=== PATIENT | male | born 1950 | race Caucasian/White ===

== ENCOUNTER 2016-09-05 16:39 | Emergency (ER) | payer OTHER ==
--- NOTE | 2016-09-05 17:24 | EDPHY ---
H & P Stated Complaint: friday lifted large weight injured back Time Seen by Provider: 09/05/16 17:18 HPI/ROS: CHIEF COMPLAINT: low back pain HISTORY OF PRESENT ILLNESS: 66-year-old male presents to the emergency department with his complaining of low back pain times 5 days. Patient was lifting a heavy object from the ground when he felt a pop in his low back and has had pain in his back since. Patient states he has been lying in bed for the last 5 days alternating ice and heat and taking ibuprofen intermittently. He denies saddle anesthesias, no loss of control of his bowel or bladder, no fevers. Patient states his pain intermittently radiates down his right leg to his ankle. Pain is worse with movement, sharp and achy in nature. Patient states he takes 400 mg of ibuprofen at a time which helps his symptoms mildly. Patient states he has a known spondylolisthesis from a trampoline accident when he was 18 years old that intermittently causes him problems that last for just a couple days. This is worse than previous cases. REVIEW OF SYSTEMS: A comprehensive 10 point review of systems is otherwise negative aside from elements mentioned in the history of present illness. Source: Patient, Family Exam Limitations: No limitations - Personal History Current Tetanus/Diphtheria Vaccine: Yes - Medical/Surgical History Hx Asthma: No Hx Chronic Respiratory Disease: No Hx Diabetes: No Hx Cardiac Disease: Yes Hx Renal Disease: No Hx Cirrhosis: No Hx Alcoholism: No Hx HIV/AIDS: No Hx Splenectomy or Spleen Trauma: No Other PMH: ablation for a fib - Social History Smoking Status: Never smoked - Physical Exam Exam: Physical Exam Gen: Alert and Oriented, NAD HEENT: PERRL, moist mucous membranes NECK: no meningismus CV: regular rate and regular rhythm PULM: CTAB, no wheezes ABDOMEN: soft, non tender to palpation, BS present BACK: Midline L5 tenderness to palpation, bilateral SI joint tenderness to palpation NEURO: Neurologically grossly intact, 2/4 deep tendon reflexes patellar and Achilles, negative straight leg raise bilaterally, 5/5 strength bilateral lower extremities EXTREMITIES: normal appearing SKIN: no rash or break in skin on exposed skin PSYCH: answers questions appropriately. Constitutional: Initial Vital Signs Temperature (C) 36.4 C 09/05/16 16:48 Heart Rate 72 09/05/16 16:48 Respiratory Rate 18 02/02/17 16:48 Blood Pressure 136/83 H 09/05/16 16:48 O2 Sat (%) 94 09/05/16 16:48 O2 Delivery Mode Room Air Allergies/Adverse Reactions: No Known Allergies Allergy (Verified 09/05/16 16:48) Home Medications: Medication Instructions Recorded Hydrocodone/APAP 5/325 [[place] 1 tab PO Q4H PRN #20 tab 09/05/16 5/325] Methocarbamol [Robaxin-750] 750 mg PO QID PRN #20 tablet 09/05/16 TESTOSTERONE 09/05/16 Medical Decision Making ED Course/Re-evaluation: 66-year-old male presents with low back pain x5 days after lifting a heavy box. Patient has no signs of cauda equina syndrome or spinal abscess. There is no need for imaging emergently in the emergency department. Patient is sent home with a prescription for Robaxin and [place]. He is going to follow up with a physical therapist tomorrow. Patient has been given strict return precautions for signs and symptoms of spinal abscess or cauda equina syndrome. Patient is comfortable with this plan. Differential Diagnosis: The differential diagnosis for the patient's back pain included but was not limited to musculo-skeletal pain, epidural abscess, herniated disk, spinal fracture, cauda equina and intra-abdominal causes including urinary system. Departure - Departure Disposition: Home, Routine, Self-Care Clinical Impression: Lumbar radiculitis Condition: Good Instructions: Lumbar Radiculopathy (ED), Lower Back Exercises (ED) Additional Instructions: Take 600 mg of ibuprofen every 8 hours with food for 5 days, takes Robaxin every 8 hours as needed for muscle spasms. Take [place] for severe pain Ice or heat whichever feels better, gentle range of motion exercises, core strengthening exercises daily. Follow up with physical therapy as soon as possible. Return to the emergency department for any loss of control of your bowel or bladder, numbness to your groin, fevers. I have referred you to a neurosurgeon for symptoms that are not improving. Referrals: Jesse Grande MD [Medical Doctor] - As per Instructions (Neurosurgeon on-call) Prescriptions: Hydrocodone/APAP 5/325 [[place] 5/325] 1 tab PO Q4H PRN #20 tab PRN Reason: Pain, Moderate Methocarbamol [Robaxin-750] 750 mg PO QID PRN #20 tablet PRN Reason: Spasms
[2016-09-05] MEDS ORDERED: METHOCARBAMOL 750 MG TAB PO ONE (17:52)
[2016-09-05] MEDS ORDERED: HYDROCODONE/APAP 5/325 TAB PO ONE (17:52)
[2016-09-05 18:29] VITALS: BP 136/91; PULSE 76; RESP 20; TEMP 98.1; O2SAT 93
== END 2016-09-05 18:29 | disposition home or self-care (01) ==
DX: M54.16 Radiculopathy, lumbar region (principal); X58.XXXA Exposure to other specified factors, initial encounter; Y93.89 Activity, other specified

== ENCOUNTER 2018-10-07 14:29 | Inpatient (IN) | payer OTHER ==
[2018-10-07] MEDS ORDERED: IPRATROPIUM/ALBUTEROL 3 ML DEYVIAL ONE (14:54)
[2018-10-07] MEDS ORDERED: IPRATROPIUM/ALBUTEROL 3 ML DEYVIAL IH ONE (15:34)
[2018-10-07] MEDS ORDERED: BENZONATATE 100 MG CAP PO ONE (15:36)
[2018-10-07 15:43] LABS: PLATELET COUNT 238 10^3/uL (150-400)
--- NOTE | 2018-10-07 15:48 | EDPHY ---
H & P Time Seen by Provider: 10/07/18 15:07 HPI/ROS: HPI Cough, headache. 68-year-old immunocompetent male by private vehicle with his . This patient reports he has had a dry nonproductive hacking cough for the last week. This cough started after your returned from [place] on a trip with his . His tells me that lots of people had a respiratory like illness in [place]. He was seen at the [facility] yesterday. He was prescribed Tussin which she says has helped his cough. He also was put on a Z-Venkatesh. He is on day 2. Of azithromycin. He reports intermittent chills. He denies fever. He states that he has a very intense headache when he is having a coughing fit. He describes this is aching, pulsating and frontal. He also describes having mild muscle aches and joint aches. He was checked for flu yesterday at the urgent care and this was negative. ROS: Constitutional: As above. No weakness. Eyes: No discharge. No changes in vision. ENT: No sore throat. No nasal congestion or rhinorrhea. Respiratory: As above. Shortness of breath associated with the cough.. Cardiac: No chest pain, no palpitations. Gastrointestinal: No abdominal pain, no vomiting, no diarrhea. Genitourinary: No hematuria. No dysuria or increased frequency with urination. Musculoskeletal: No back pain. No neck pain. As above. Skin: No rashes. Neurological: As above. No focal weakness or altered sensation. Past medical history: Ablation for AFib x2. He is not on any anticoagulant or antiplatelet medications. Social history: Nonsmoker. No alcohol. Here with his . As above. Physical Exam: General Appearance: Alert, intermittent hacking coughing fits. This patient is responding to questions appropriately and in full sentences. This patient appears well-hydrated and well-nourished. Eyes: Pupils equal and round no pallor or injection. No lid edema, erythema or injection. Respiratory: There are no retractions, lung sounds are mildly diminished bilaterally, no wheezing. Intermittent hacking coughing fits. No tachypnea. Cardiovascular: Regular rate and rhythm. No murmur appreciated. Neurological: Motor sensory function is grossly intact. Cranial nerves are normal. Gait is normal. Skin: Warm and dry, no rashes. Musculoskeletal: Neck is supple and nontender. Extremities are symmetrical. All joints range without pain or impingement. Psychiatric: No agitation. No depression. Database: EKG: Imaging: Chest x-ray PA and lateral: The cardiac mediastinal silhouette is unremarkable. No evidence of pneumothorax. Left lower lobe infiltrate. Findings suggestive of bronchitis. No other acute cardiopulmonary disease process. Interpreted by me. CT head without contrast: Negative. Results were discussed with staff radiologist Dr. Guillermo Rodrigues. Procedures: Emergency department course: Triage vital signs reviewed. He is moderately hypertensive. Vital signs are otherwise normal. He is afebrile. He was initially given an albuterol nebulizer from triage. He stated this helped his cough. After my evaluation he will be given an albuterol/Atrovent nebulizer and Tessalon parole. Chest x- ray to be obtained as well as respiratory pathogen panel. CT head without contrast will be obtained as well to evaluate for sinus disease as well as pathology related to his headache. Patient endorses workup. The patient has not been immunized for influenza. He is unsure about his immunization history. Of concern is possible pertussis. However he is currently on azithromycin. He states that he is on day 2 of azithromycin. He had this medication left over from sometime ago and started taking it 2 days ago. 4:35 p.m., patient re-evaluated, more comfortable at this time. Cough is improved. Results of chest x-ray discussed, diagnosis of pneumonia discussed. Blood cultures obtained. Need for admission discussed with the patient and his . They endorse. I spoke with the hospitalist in the emergency department regarding this patient. Dr. Duran accepts this patient for admission to the hospitalist service. I discussed antibiotic administration. The patient will receive IV Rocephin and IV azithromycin in the emergency department. The patient's remaining emergency department course under my care has been uneventful. The patient was admitted in stable condition to the hospitalist service. Differential Diagnosis: The differential diagnosis on this patient includes but is not limited to viral bronchitis, influenza. This represents a partial list of diagnoses considered. These considerations are based on history, physical exam, past history, reassessment and diagnostic testing. Smoking Status: Never smoked Constitutional: Initial Vital Signs Temperature (C) 36.6 C 10/07/18 14:37 Heart Rate 79 10/07/18 14:37 Respiratory Rate 18 10/07/18 14:37 Blood Pressure 162/78 H 10/07/18 14:37 O2 Sat (%) 94 10/07/18 14:37 O2 Delivery Mode Room Air O2 (L/minute) 1 Allergies/Adverse Reactions: No Known Allergies Allergy (Verified 09/05/16 16:48) Home Medications: Medication Instructions Recorded Cholecalciferol Vit D3 [Vitamin D3 10,000 units PO DAILY 10/07/18 2000 units tab (OTC)] Herbals/Supplements -Info Only 1 ea PO DAILY 10/07/18 Ibuprofen [Motrin (*)] 400 mg PO BID PRN 10/07/18 Melatonin [Melatonin 3 MG (*)] 3 mg PO HS 10/07/18 [place]-3 Fatty Acids [Fish Oil 1000 1,000 mg PO DAILY 10/07/18 mg (*)] Progesterone [Progesterone in Oil] 5 mg IM Q7D 10/07/18 Testosterone Cypionate 100 mg IM Q7D 10/07/18 Vitamin B Complex [Vitamin B 1 each PO DAILY 10/07/18 Complex (OTC)] Azithromycin 250 mg PO DAILY #4 tablet 10/09/18 Benzonatate [Tessalon Pearles] 100 mg PO TID PRN #30 cap 10/09/18 Cefdinir [Omnicef (*)] 300 mg PO BID #8 cap 10/09/18 HYDROcodone/CPM TUSSIONEX 5 ml PO BID PRN #30 ml 10/09/18 [Tussionex Suspension] HYDROcodone/CPM TUSSIONEX 5 ml PO Q12 #30 ml 10/09/18 [Tussionex Suspension] guaiFENesin [Mucinex 600 MG (*)] 600 mg PO BID tab.er 10/09/18 Medical Decision Making - Data Points Laboratory Results: Laboratory Results 10/08/18 04:46 10/08/18 04:46 Medications Given: Discontinued Medications Hydrocodone Bitart/Acetaminophen (Pipestem 5/325) 1 - 2 tab PO Q4HRS PRN PRN Reason: Cough, Moderate Stop: 10/17/18 17:31 Last Admin: 10/07/18 18:43 Dose: 1 tab Albuterol/Ipratropium (Duoneb) 3 ml IH EDNOW ONE Stop: 10/07/18 15:35 Last Admin: 10/07/18 15:48 Dose: 3 ml Albuterol/Ipratropium (Duoneb) 3 ml IH QID [facility] Stop: 04/05/19 20:59 Last Admin: 10/07/18 21:51 Dose: Not Given Benzonatate (Tessalon Pearles) 200 mg PO EDNOW ONE Stop: 10/07/18 15:37 Last Admin: 10/07/18 18:45 Dose: Not Given Benzonatate (Tessalon Pearles) 100 mg PO TID PRN PRN Reason: Cough, Mild Stop: 04/05/19 23:22 Last Admin: 10/08/18 22:31 Dose: 100 mg Chlorphenir/Hydrocodone Polistirex (Tussionex Suspension) 5 ml PO Q12 [facility] Stop: 04/05/19 20:59 Last Admin: 10/09/18 08:04 Dose: 5 ml Cholecalciferol (Vitamin D) 10,000 units PO DAILY [facility] Stop: 04/06/19 08:59 Last Admin: 10/09/18 07:53 Dose: 10,000 units Guaifenesin (Mucinex) 600 mg PO BID [facility] Stop: 04/05/19 23:29 Last Admin: 10/09/18 08:04 Dose: 600 mg Azithromycin 500 mg/ Dextrose 255 mls @ 255 mls/hr IV EDNOW ONE PRN Reason: Protocol Stop: 10/07/18 17:34 Last Admin: 10/07/18 17:37 Dose: 255 mls Ceftriaxone Sodium 2 gm/ (Sodium Chloride) 50 mls @ 100 mls/hr IV EDNOW ONE PRN Reason: Protocol Stop: 10/07/18 17:04 Last Admin: 10/07/18 17:03 Dose: 50 mls Azithromycin 500 mg/ Sodium (Chloride) 255 mls @ 255 mls/hr IV DAILY [facility] PRN Reason: Protocol Stop: 11/07/18 08:59 Last Admin: 10/09/18 07:46 Dose: 255 mls Ceftriaxone Sodium/Dextrose (Rocephin 1 Gm (Premix)) 50 mls @ 100 mls/hr IV DAILY [facility] PRN Reason: Protocol Stop: 11/07/18 08:59 Last Admin: 10/09/18 09:40 Dose: 50 mls Ibuprofen (Motrin) 400 mg PO Q4HRS PRN PRN Reason: Pain, Mild/Fever, Can Take PO Stop: 04/05/19 17:31 Last Admin: 10/07/18 22:37 Dose: 400 mg Melatonin (Melatonin) 3 mg PO HS [facility] Stop: 04/05/19 20:59 Last Admin: 10/08/18 20:59 Dose: 3 mg Szvtu-[id number] Ethyl Esters (Fish Oil) 1,000 mg PO DAILY [facility] Stop: 04/06/19 08:59 Last Admin: 10/09/18 07:59 Dose: 1,000 mg Vitamin B Complex (Vitamin B Complex) 1 ea PO DAILY [facility] Stop: 04/06/19 08:59 Last Admin: 10/09/18 07:54 Dose: 1 ea Departure - Departure Disposition: [facility] Clinical Impression: Bronchitis, Pneumonia
[2018-10-07] MEDS ORDERED: AZITHROMYCIN IV 500 MG in D5W 250 ML IV ONE (16:35)
[2018-10-07] MEDS ORDERED: oxyCODONE IR 5 MG TAB PO PRN (17:32)
[2018-10-07] MEDS ORDERED: ACETAMINOPHEN 325 MG TAB PO PRN (17:32)
[2018-10-07] MEDS ORDERED: ONDANSETRON DISINTEGRATING 4 MG TAB PO PRN (17:32)
[2018-10-07] MEDS ORDERED: PROMETHAZINE HCL 25 MG/ML INJ IVP PRN (17:32)
[2018-10-07] MEDS ORDERED: HYDROmorphONE/DILAUDID 1 MG/ML INJ IVP PRN (17:32)
[2018-10-07] MEDS ORDERED: IBUPROFEN 200 MG TAB PO PRN (17:32)
[2018-10-07] MEDS ORDERED: HYDROCODONE/APAP 5/325 TAB PO PRN (17:32)
[2018-10-07] MEDS ORDERED: ONDANSETRON 4 MG/2 ML VIAL IVP PRN (17:32)
[2018-10-07] MEDS ORDERED: ALBUTEROL 3 ML DEYVIAL IH PRN (17:32)
[2018-10-07] MEDS ORDERED: NS 1,000 ML IV SCH (17:45)
--- NOTE | 2018-10-07 19:09 | PDGENHP ---
History and Physical - Chief Complaint severe cough, mucus production - History of Present Illness 68 yo M with PMH of a fib/flutter s/p ablation presenting with complaints of approximately 1 week of severe productive cough, green sputum production and headache. Patient notes this began following a trip to [place], during which trip he was exposed to multiple people with respiratory symptoms. Patient notes that the cough is so severe that he has been unable to sleep, and that it will lead to episodes of gagging and inability to catch his breath. He also notes that along with the coughing fits he has bouts of severe headache that is located in the back of his head and behind his eyes. He has had some relief with tussionex and ibuprofen but states it is only about 50% relief. He did start azithromycin that he had at home but went to urgent care yesterday and they said this was likely viral and that he does not need antibiotics so he stopped it. He notes he is otherwise very healthy and does not think he has had a cold or flu in over 10 years. History Information - Allergies/Home Medication List Allergies/Adverse Reactions: No Known Allergies Allergy (Verified 09/05/16 16:48) Home Medications: Azithromycin 250 mg PO DAILY 10/07/18 [Last Taken 10/06/18] Cholecalciferol Vit D3 [Vitamin D3 2000 units tab (OTC)] 10,000 units PO DAILY 10/07/18 [Last Taken Unknown] Dextromethorphan Hb/Doxylamine [Vicks Nyquil Cough Liquid] 30 ml PO HS PRN 10/07 [Last Taken Unknown] HYDROcodone/CPM TUSSIONEX [Tussionex Suspension (RX)] 5 ml PO Q12 10/07/18 [ Last Taken 10/07/18] Herbals/Supplements -Info Only 1 ea PO DAILY 10/07/18 [Last Taken Unknown] Ibuprofen [Motrin (*)] 400 mg PO BID PRN 10/07/18 [Last Taken Unknown] Melatonin [Melatonin 3 MG (*)] 3 mg PO HS 10/07/18 [Last Taken Unknown] [place]-3 Fatty Acids [Fish Oil 1000 mg (*)] 1,000 mg PO DAILY 10/07/18 [Last Taken Unknown] Progesterone [Progesterone in Oil] 5 mg IM Q7D 10/07/18 [Last Taken 10/01/18] Testosterone Cypionate 100 mg IM Q7D 10/07/18 [Last Taken 10/01/18] Vitamin B Complex [Vitamin B Complex (OTC)] 1 each PO DAILY 10/07/18 [Last Taken Unknown] I have personally reviewed and updated: family history, medical history, social history, surgical history - Past Medical History atrial fibrillation Additional medical history: hypogonadism - Surgical History Reports: ablation - Family History Positive for: cancer (mother with colon cancer) - Social History Smoking Status: Never smoked Alcohol Use: None Drug Use: None Additional social history: , accompanied by his , has 2 children, [employer] [place] Review of Systems Review of Systems: ROS: 10pt was reviewed & negative except for what was stated in HPI & below Physical Exam Physical Exam: Temp Pulse Resp BP Pulse Ox 37.3 C 76 16 130/78 H 94 10/07/18 17:13 10/07/18 17:13 10/07/18 17:13 10/07/18 17:13 10/07/18 17:13 Constitutional: appears nourished, uncomfortable Eyes: PERRL, anicteric sclera Ears, Nose, Mouth, Throat: moist mucous membranes, hearing normal Cardiovascular: regular rate and rhythym, no murmur, rub, or gallop, No edema Respiratory: inspiratory crackles, respiratory distress, rhonchi Gastrointestinal: normoactive bowel sounds, soft, non-tender abdomen Genitourinary: no bladder tenderness Skin: warm, normal color Musculoskeletal: full muscle strength Neurologic: AAOx3 Psychiatric: interacting appropriately, not anxious, not encephalopathic Lab Data & Imaging Review 10/07/18 15:25 10/07/18 15:25 WBC 7.48 10^3/uL (3.80-9.50) 10/07/18 15:25 RBC 4.29 10^6/uL (4.40-6.38) L 10/07/18 15:25 Hgb 13.9 g/dL (13.7-17.5) 10/07/18 15:25 Hct 40.4 % (40.0-51.0) 10/07/18 15:25 MCV 94.2 fL (81.5-99.8) 10/07/18 15:25 MCH 32.4 pg (27.9-34.1) 10/07/18 15:25 MCHC 34.4 g/dL (32.4-36.7) 10/07/18 15:25 RDW 12.6 % (11.5-15.2) 10/07/18 15:25 Plt Count 238 10^3/uL (150-400) 10/07/18 15:25 MPV 8.5 fL (8.7-11.7) L 10/07/18 15:25 Neut % (Auto) Not Reported 10/07/18 15:25 Lymph % (Auto) Not Reported 10/07/18 15:25 [place] % (Auto) Not Reported 10/07/18 15:25 Eos % (Auto) Not Reported 10/07/18 15:25 Baso % (Auto) Not Reported 10/07/18 15:25 Nucleat RBC Rel Count Not Reported 10/07/18 15:25 Absolute Neuts (auto) Not Reported 10/07/18 15:25 Absolute Lymphs (auto) Not Reported 10/07/18 15:25 Absolute Monos (auto) Not Reported 10/07/18 15:25 Absolute Eos (auto) Not Reported 10/07/18 15:25 Absolute Basos (auto) Not Reported 10/07/18 15:25 Absolute Nucleated RBC Not Reported 10/07/18 15:25 Immature Gran % Not Reported 10/07/18 15:25 Seg Neutrophils % 60.6 % 10/07/18 15:25 Band Neutrophils % 3.0 % 10/07/18 15:25 Lymphocytes % 23.3 % 10/07/18 15:25 Monocytes % 10.1 % 10/07/18 15:25 Eosinophils % 1.0 % 10/07/18 15:25 Basophils % 0.0 % 10/07/18 15:25 Metamyelocytes % 2.0 % 10/07/18 15:25 Myelocytes % 0.0 % 10/07/18 15:25 Promyelocytes % 0.0 % 10/07/18 15:25 Blast Cells % 0.0 % 10/07/18 15:25 Immature Gran # Not Reported 10/07/18 15:25 Absolute Seg Neuts 4.53 10^3/uL (1.70-6.50) 10/07/18 15:25 Absolute Band Neuts 0.22 10^3/uL (0.00-0.70) 10/07/18 15:25 Absolute Lymphocytes 1.74 10^3/uL (1.00-3.00) 10/07/18 15:25 Absolute Monocytes 0.76 10^3/uL (0.30-0.80) 10/07/18 15:25 Absolute Eosinophils 0.07 10^3/uL (0.03-0.40) 10/07/18 15:25 Absolute Basophils 0.00 10^3/uL (0.02-0.10) L 10/07/18 15:25 Absolute Metamyelocyte 0.15 10^3/mL (0.00-0.00) H 10/07/18 15:25 Absolute Myelocytes 0.00 10^3/mL (0.00-0.00) 10/07/18 15:25 Absolute Promyelocytes 0.00 10^3/uL (0.00-0.00) 10/07/18 15:25 Absolute Plasma Cells 0.00 10^3/uL (0.00-0.00) 10/07/18 15:25 Nucleated RBCs 0 /100 WBC (0-0) 10/07/18 15:25 RBC/WBC/PLT Morphology NORMAL (NORMAL) 10/07/18 15:25 Absolute Blast Cells 0.00 10^3/uL (0.00-0.00) 10/07/18 15:25 Plasma Cells % 0.0 % 10/07/18 15:25 Platelet Estimate ADEQUATE (ADEQ) 10/07/18 15:25 Sodium 133 mEq/L (135-145) L 10/07/18 15:25 Potassium 4.6 mEq/L (3.5-5.2) 10/07/18 15:25 Chloride 99 mEq/L (97-110) 10/07/18 15:25 Carbon Dioxide 26 mEq/l (22-31) 10/07/18 15:25 Anion Gap 8 mEq/L (6-14) 10/07/18 15:25 BUN 9 mg/dL (7-23) 10/07/18 15:25 Creatinine 0.9 mg/dL (0.7-1.3) 10/07/18 15:25 Estimated GFR > 60 10/07/18 15:25 Glucose 100 mg/dL (70-100) 10/07/18 15:25 Calcium 8.9 mg/dL (8.5-10.4) 10/07/18 15:25 Visualized and Interpreted Chest x-ray results: Yes Chest X-Ray results: infiltrate (LLL), other (bronchitis) Visualized and Interpreted imaging results: Yes Interpretation: head CT: normal Assessment & Plan Assessment: Bronchitis (Acute) Pneumonia (Acute) 68 yo M with PMH of a fib/flutter presenting with sob, cough found to have LLL PNA and acute bronchitis # LLL PNA: respiratory panel showing parainfluenza 3 virus and this may all be viral pna however blood cultures pending, patient non toxic appearing and not septic, started on ctx/azithromycin for coverage possible bacterial superinfection, will check legionella/strep pneumo urinary ag as well # parainfluenza 3 virus: as above, will monitor # acute bronchitis: patient with significant cough and some wheezing, increased wob on exam, felt some benefit from nebs in ER and will continue overnight, coughing fits are severe and will continue prn hydrocodone for cough # headache: in the setting of severe coughing as above, head CT negative for anything acute and visualized sinuses are clear # a fib/flutter: resolved post ablation # hyponatremia: mild in the setting of poor po intake and likely hypovolemic # observation status Patient new to my care. Old records reviewed and summarized as above. Care plan reviewed with ER doctor as above, further hx obtained from patients present at bedside.
[2018-10-07] MEDS ORDERED: DOXYLAMINE PO PRN (19:11)
[2018-10-07] MEDS ORDERED: DEXTROMETHORPHAN HB PO PRN (19:11)
[2018-10-07] MEDS: HYDROcodone/CPM TUSSIONEX 5 ML UDSYR PO SCH (20:27)
[2018-10-07] MEDS ORDERED: IPRATROPIUM/ALBUTEROL 3 ML DEYVIAL IH SCH (21:00)
[2018-10-07] MEDS: MELATONIN 3 MG TAB PO SCH (22:17)
[2018-10-07] MEDS ORDERED: IPRATROPIUM/ALBUTEROL 3 ML DEYVIAL IH PRN (23:00)
[2018-10-07] MEDS: BENZONATATE 100 MG CAP PO PRN (23:41)
[2018-10-08] MEDS: guaiFENesin 600 MG TAB.ER PO SCH ×4 (03:29→20:55)
[2018-10-08] MEDS: BENZONATATE 100 MG CAP PO PRN ×3 (04:54→22:31)
[2018-10-08 05:46] LABS: PLATELET COUNT 220 10^3/uL (150-400)
[2018-10-08] MEDS: HYDROcodone/CPM TUSSIONEX 5 ML UDSYR PO SCH ×2 (09:43→20:58)
[2018-10-08] MEDS: AZITHROMYCIN IV 500 MG in NS 250 ML IV SCH (09:44)
--- NOTE | 2018-10-08 09:46 | ASMTCMCOM ---
CM Note CM Note Notes: Pt is a 68 y/o man admitted for pneumonia and bronchitis. Pt will most likely d/c independent when medically stable. No therapies ordered at this time. CM available for changes. Plan: Independent Date Signed: 10/08/2018 09:45 AM Electronically Signed By:ERNESTO Zhao
[2018-10-08] MEDS: OMEGA-3 FATTY ACIDS 1,000 MG CAP PO SCH (10:03)
[2018-10-08] MEDS: VITAMIN B COMPLEX 1 EA CAP/TAB PO SCH (10:03)
[2018-10-08] MEDS: CHOLECALCIFEROL VIT D3 2,000 UNITS TAB/CAP PO SCH (10:03)
--- NOTE | 2018-10-08 10:23 | ASMTCMCOM ---
CM Note CM Note Notes: Pts case discussed w/ Florence Elizabeth NP. Pt is a 68 y/o man admitted for pneumonia and bronchitis. Pt will most likely d/c independent when medically stable. No therapies ordered at this time. CM available for changes. Plan: Independent Date Signed: 10/08/2018 10:23 AM Electronically Signed By:ERNESTO Zhao
--- NOTE | 2018-10-08 13:19 | HOSPPROG ---
Hospitalist Progress Note Assessment/Plan: 68 yo M with PMH of a fib/flutter presenting with sob, cough found to have LLL PNA and acute bronchitis. First encounter, chart reviewed. *Left lower lobe pna -ceftriaxone and azithromycin -legionella and strep pneumo urinary pending *parainfluenza 3 virus -supportive care *bronchitis with severe coughing episodes -doing better w supportive care; Rosie Vázquez -coughing bouts improved around 11:30 this morning *headache -resolved *afib/flutter -s/p ablation *hyponatremia -mild *plan: Patient will require another midnight stay for treatment of pna w IV abx. Continued supportive treatment for the influenza. If feeling better tomorrow, will hopefully dc. Subjective: Tone is starting to feel better after getting antibiotics and treatment for his cough. Objective: Vital Signs Temp Pulse Resp BP Pulse Ox 37.1 C 90 18 128/76 H 93 10/08/18 11:31 10/08/18 11:31 10/08/18 11:31 10/08/18 11:31 10/08/18 11:31 Laboratory Results 10/08/18 04:46 10/08/18 04:46 10/07/18 10/08/18 10/09/18 05:59 05:59 05:59 Intake Total 1480 Balance 1480 - Physical Exam Constitutional: no apparent distress, appears nourished, not in pain Eyes: PERRL Ears, Nose, Mouth, Throat: hearing normal Cardiovascular: regular rate and rhythym, no murmur, rub, or gallop Respiratory: no respiratory distress, rhonchi (bases) Gastrointestinal: soft, non-tender abdomen Skin: warm Musculoskeletal: full muscle strength Neurologic: AAOx3 Psychiatric: interacting appropriately ICD10 Worksheet Patient Problems: Problems Problem Status Onset Bronchitis Acute Pneumonia Acute
[2018-10-08] MEDS: MELATONIN 3 MG TAB PO SCH (20:59)
[2018-10-09] MEDS: AZITHROMYCIN IV 500 MG in NS 250 ML IV SCH (07:46)
[2018-10-09] MEDS: CHOLECALCIFEROL VIT D3 2,000 UNITS TAB/CAP PO SCH (07:53)
[2018-10-09] MEDS: VITAMIN B COMPLEX 1 EA CAP/TAB PO SCH (07:54)
[2018-10-09] MEDS: OMEGA-3 FATTY ACIDS 1,000 MG CAP PO SCH (07:59)
[2018-10-09] MEDS: HYDROcodone/CPM TUSSIONEX 5 ML UDSYR PO SCH (08:04)
[2018-10-09] MEDS: guaiFENesin 600 MG TAB.ER PO SCH (08:04)
[2018-10-09 08:12] VITALS: BP 125/78
--- NOTE | 2018-10-09 09:36 | PDMN ---
Medical Necessity Medical necessity: Change to IP, as of 10/08/18, per & MCG [id number]; los >2 mn for ongoing management of pneumonia w/parainfluenza & bronchitis w/severe coughing episodes; requiring further monitoring, IV abx & supportive care; hx afib/flutter
--- NOTE | 2018-10-09 10:01 | HOSPPROG ---
Hospitalist Progress Note Assessment/Plan: 68 yo M with PMH of a fib/flutter presenting with sob, cough found to have LLL PNA and acute bronchitis. *Left lower lobe pna -ceftriaxone and azithromycin -legionella and strep pneumo urinary pending *parainfluenza 3 virus -supportive care *bronchitis with severe coughing episodes -doing better w supportive care; Rosie Vázquez *headache -resolved *afib/flutter -s/p ablation *hyponatremia -mild *plan: feeling better today Subjective: Tone is feeling better, concerned about the cough. Objective: Vital Signs Temp Pulse Resp BP Pulse Ox 36.8 C 59 L 16 125/78 H 93 10/09/18 08:00 10/09/18 08:00 10/09/18 08:00 10/09/18 08:00 10/09/18 08:00 - Physical Exam Constitutional: no apparent distress, appears nourished, not in pain Eyes: PERRL Ears, Nose, Mouth, Throat: hearing normal Cardiovascular: regular rate and rhythym Respiratory: no respiratory distress, bronchial breath sounds (few scattered) Skin: warm Musculoskeletal: full muscle strength Neurologic: AAOx3 Psychiatric: interacting appropriately ICD10 Worksheet Patient Problems: Problems Problem Status Onset Bronchitis Acute Chronic Disease Mgmt/Transitional Care Acute Pneumonia Acute
--- NOTE | 2018-10-09 11:28 | GDS ---
[f rep st] DISCHARGE SUMMARY DISCHARGE DIAGNOSES: 1. Left lower lobe pneumonia. 2. Parainfluenza 3 virus. 3. Bronchitis with severe coughing episodes. 4. Headache. 5. Atrial fibrillation/atrial flutter status post ablation. 6. Hyponatremia. HISTORY OF PRESENT ILLNESS: Briefly, this patient is a 68-year-old male with a past medical history of atrial fibrillation/flutter, presented with shortness of breath, found to have a left lower lobe pneumonia and acute bronchitis. He was admitted and treated with IV antibiotics. He is feeling markedly better. He will be discharged home. He does not have a primary care provider. He has been given the names of 2 different providers to pick from. HOSPITAL COURSE PER PROBLEM: 1. Left lower lobe pneumonia, markedly improved. He is on room air. 2. Parainfluenza 3 virus. Supportive care. 3. Bronchitis with severe coughing episodes. Did well with Tessalon Perles and Tussionex. Will resume these at discharge. 4. Headache, resolved. 5. Atrial fib/flutter in a sinus rhythm. 6. Hyponatremia, very mild. DISCHARGE CONDITION: Stable. Blood pressure is 125/78, heart rate of 59, respiratory rate 16, O2 sats on room air 93%, temp is 36.8 Celsius. MEDICATIONS AT DISCHARGE: Please see the EMR. DISCHARGE INSTRUCTIONS: 1. Start the antibiotics tomorrow. 2. If he develops diarrhea greater than 3 liquidy stools a day, to see his doctor. 3. If he develops worsening chest pain, shortness of breath, return to the ER. 4. To do not drink or drive while on the narcotic cough syrup. 5. To follow up with Dr. Gauri Menendez. 6. To get a followup chest x-ray in 6 weeks. 7. He has 2 pending labs including urine legionella and Strep pneumoniae. Greater than 30 minutes discharging and coordinating the patient's care. /[id number]/MODL MTDD
--- NOTE | 2018-10-09 15:57 | ASMTDCNOTE ---
Case Management Discharge Discharge Order Complete? Answers: Yes Patient to Obtain Answers: via Family Medications Transportation Arranged Answers: Family/Friends Discharge Comments Notes: CM discussed with Hospitalist Florence Elizabeth [employer], patient to discharge independently. Date Signed: 10/09/2018 03:55 PM Electronically Signed By:Anat Kerr
== END 2018-10-09 12:01 | disposition home or self-care (01) | DRG 194 ==
LOC: INTOOBSV 16:39 → F3E 17:52 → OBSVTOIN 10-08 16:34
PROVIDERS: ADMIT Internal Medicine; ATTEND Internal Medicine
DX: J12.2 Parainfluenza virus pneumonia (principal); J20.4 Acute bronchitis due to parainfluenza virus; E87.1 Hypo-osmolality and hyponatremia; E86.1 Hypovolemia; R51 Headache
CPT/HCPCS: 87449-90; 96374; G0378; J0456; J0696